=== PATIENT | male | born 1945 ===

== ENCOUNTER 2019-03-11 16:07 | Inpatient (IN) | payer MEDICARE, OTHER ==
[~2019-03-11] VITALS: Ht 175.3 cm; Wt 90.0 kg
[2019-03-11] VITALS (7 sets, daily range): BP systolic 137–155; BP diastolic 60–92
[~2019-03-11 16:07] MED LIST: heparin 10,000 units/1 ML INJ ONE; heparin, porcine-25,000 units/D5-250ml premix IV ONE
[2019-03-11] MEDS ORDERED: ondansetron/PF 4mg/2ml inj IV ONE (16:25)
[2019-03-11] MEDS: morphine 4 MG/ML inj SYRINge IV PRN ×2 (16:28→16:56)
[2019-03-11] MEDS ORDERED: iohexol 350MG/ML 100ml bottle IV ONE (16:30)
[2019-03-11 16:47] LABS: BASOPHILS # (AUTO) 0.1 X10'3 (0-0.2); BASOPHILS % (AUTO) 0.7 % (0-1); EOSINOPHILS # (AUTO) 0.1 X10'3 (0-0.9); HEMATOCRIT 44.1 % (42.0-52.0); HEMOGLOBIN 14.9 g/dl (14.0-17.9); LYMPHOCYTES % (AUTO) 19.9 % (21-51); MEAN CORPUSCULAR HEMOGLOBIN 29.7 PG (27.0-31.0); MEAN CORPUSCULAR HGB CONC 33.7 g/dL (33.0-36.5); MEAN CORPUSCULAR VOLUME 88.2 FL (78-98); MEAN PLATELET VOLUME 9.4 FL (7.4-10.4); MONOCYTES # (AUTO) 0.8 X10'3 (0-0.9); MONOCYTES % (AUTO) 7.5 % (2-12); NEUTROPHILS # (AUTO) 7.2 X10'3 (1.8-7.7); NEUTROPHILS % (AUTO) 70.9 % (42-75); PLATELET COUNT 234 X10'3 (140-440); RED CELL DISTRIBUTION WIDTH 13.9 % (11.5-14.5); WHITE BLOOD COUNT 10.1 X10'3 (4.5-11.0)
[2019-03-11 16:59] LABS: ALANINE AMINOTRANSFERASE 25 U/L (12-78); ALBUMIN 3.8 G/DL (3.4-5.0); ALKALINE PHOSPHATASE 101 IU/L (46-116); ANION GAP 10 (8-16); ASPARTATE AMINO TRANSFERASE 16 U/L (10-37); BILIRUBIN,TOTAL 0.5 MG/DL (0.1-1.0); BLOOD UREA NITROGEN 24 MG/DL (7-18); BUN/CREATININE RATIO 16.4 (5.4-32.0); CALCIUM 9.9 MG/DL (8.5-10.1); CHLORIDE 104 MMOL/L (99-107); CREATININE 1.46 MG/DL (0.60-1.10); GLUCOSE 160 MG/DL (70-104); POTASSIUM 4.4 MMOL/L (3.5-5.1); SODIUM 139 MMOL/L (135-145); TOTAL CARBON DIOXIDE 24.6 MMOL/L (24-32); TOTAL PROTEIN 7.7 G/DL (6.4-8.2); eGFR 47 ML/MIN
[2019-03-11 17:06] LABS: MAGNESIUM 1.9 MG/DL (1.5-2.4)
--- NOTE | 2019-03-11 17:06 | NUR ---
PATIETN BACK IN THE ROOM,MEDICATED WITH MORPHINE.
--- NOTE | 2019-03-11 17:09 | NUR ---
DR. ROJAS MADE AWARE THAT PATIENT WAS MEDICATED MORPHINE 4MG X 2 ALREADY,PAIN STILL 10/10,MD ORDERED REPEAT EKG AND FENTANYL 100MCG.
[2019-03-11] MEDS ORDERED: fentaNYL/PF 50MCG/1 ML 2ML syringe IV STA (17:12)
--- NOTE | 2019-03-11 17:30 | NUR ---
DR. ROJAS AT BEDSIDE,ORDERED TO PROCEED GIVING HEPARIN.
[2019-03-11] MEDS ORDERED: heparin 25,000 UNIT/250ml bag 250 ML IV SCH (17:37)
[2019-03-11] MEDS ORDERED: heparin 10,000 units/1 ML INJ IV PRN (17:40)
[2019-03-11] MEDS ORDERED: heparin 10,000 units/1 ML INJ IV ONE (17:40)
[2019-03-11] MEDS ORDERED: heparin 1,000unit/ml 10ml vial 10 ML ONE (17:45)
[2019-03-11] MEDS ORDERED: midazolam 2 mg/2 ml injection ONE (17:45)
[2019-03-11] MEDS ORDERED: fentaNYL/PF 50MCG/1 ML 2ML syringe ONE (17:45)
[2019-03-11] MEDS ORDERED: LIDOcaine 1% (10mg/ml)w/preservative injection 20ml MDV ONE (17:45)
[2019-03-11] MEDS ORDERED: iohexol 350 MG/1 ML 200ml bottle ONE (17:46)
--- NOTE | 2019-03-11 17:51 | NUR ---
Awaiting for equipment operator/laborer to take patient,patient prepped:shaved bilateral groin,cleaned with chlorhexidine,patient on a clean gown,extension tubing to both piv.patient repositioned for comfort.
--- NOTE | 2019-03-11 17:54 | NUR ---
PHARMACIST HAS TAKEN THE PT'S BOTTLES OF MEDS.
[2019-03-11] MEDS ORDERED: HYDR-4353 PO (17:58)
[2019-03-11] MEDS ORDERED: METO50TA17 PO (17:58)
[2019-03-11] MEDS ORDERED: LISI-640 PO (17:58)
--- NOTE | 2019-03-11 17:58 | NUR ---
ADELE PHONE NUMBER (PT'S SON'S CHELE) [phone]
--- NOTE | 2019-03-11 18:02 | NUR ---
PT GOING TO CATHLAB NOW. PT'S KEYS GIVEN TO ADELE PER PT'S REQUEST
[2019-03-11] MEDS ORDERED: RIVA20TA PO (18:33)
[2019-03-11] MEDS ORDERED: BUPR75TA8 PO (18:33)
--- NOTE | 2019-03-11 18:45 | NUR ---
Received shift report from Assisted Living Administrator. Heparin drip D/C in director of cardiac cath lab, will need to give Plavix when pt gets to unit. Perclose to R groin, no hematoma noted. 1 stent to proximal LAD which is 80% occluded. Per Dr. Jacob, pt did not have a RI.
[2019-03-11] MEDS ORDERED: clopidogrel 300mg tablet ONE (18:58)
--- NOTE | 2019-03-11 19:15 | NUR ---
Pt arrived to unit from manager cardiac cath. 2 RN skin assessment performed, perclose to R groin, no hematoma noted. No other skin issue noted. Pt came with personal belongings (green bag and black bag), and a plastic bag with clothes. Pt is oriented on the unit, call light within reach, all needs met. Pt is aware that he is to remain bedrest till 01:15 am on 03/12. Tele placed on patient.
[2019-03-11] MEDS ORDERED: proCHLORperazine 10 MG/2 ml inj IV PRN (19:40)
[2019-03-11] MEDS ORDERED: ondansetron/PF 4mg/2ml inj IV PRN (19:40)
[2019-03-11] MEDS ORDERED: HYDROcodone/acetaminophen 10/325mg tab PO PRN (19:40)
[2019-03-11] MEDS ORDERED: HYDROcodone/acetaminophen 5mg/325mg tablet PO PRN (19:40)
[2019-03-11] MEDS ORDERED: OXAZEpam 15mg capsule PO PRN (19:40)
[2019-03-11] MEDS: metoprolol tartrate 25mg tablet PO SCH (20:56)
[2019-03-11] MEDS: atorvastatin 20mg tablet PO SCH (20:57)
[2019-03-12 02:00] VITALS: BP 144/71
--- NOTE | 2019-03-12 05:54 | NUR ---
I have reviewed and agree with Josie Alvarez's RN charting.
[2019-03-12 06:00] VITALS: BP 139/71
--- NOTE | 2019-03-12 06:00 | NUR ---
Problems reprioritized. Patient report given, questions answered & plan of care reviewed with MELIZA Posada.
[2019-03-12 06:17] LABS: BASOPHILS # (AUTO) 0.1 X10'3 (0-0.2); BASOPHILS % (AUTO) 0.5 % (0-1); EOSINOPHILS % (AUTO) 0.4 % (0-6); HEMATOCRIT 41.5 % (42.0-52.0); HEMOGLOBIN 13.9 g/dl (14.0-17.9); LYMPHOCYTES # (AUTO) 1.5 X10'3 (1.1-4.8); LYMPHOCYTES % (AUTO) 13.6 % (21-51); MEAN CORPUSCULAR HEMOGLOBIN 29.8 PG (27.0-31.0); MEAN CORPUSCULAR HGB CONC 33.6 g/dL (33.0-36.5); MEAN CORPUSCULAR VOLUME 88.6 FL (78-98); MEAN PLATELET VOLUME 9.4 FL (7.4-10.4); MONOCYTES # (AUTO) 1.1 X10'3 (0-0.9); MONOCYTES % (AUTO) 9.5 % (2-12); NEUTROPHILS # (AUTO) 8.5 X10'3 (1.8-7.7); PLATELET COUNT 199 X10'3 (140-440); RED BLOOD COUNT 4.68 X10'6 (4.70-6.10); WHITE BLOOD COUNT 11.1 X10'3 (4.5-11.0)
--- NOTE | 2019-03-12 06:23 | NUR ---
Problems reprioritized. Patient report given, questions answered & plan of care reviewed with Claudette Oliveros RN.
--- NOTE | 2019-03-12 07:02 | NUR ---
Patient in room PCU 3017. I have received report from MELIZA CHRISTINE AND MELIZA MOORE and had the opportunity to ask questions and assume patient care.
[2019-03-12] MEDS: metoprolol tartrate 25mg tablet PO SCH ×2 (07:30→21:36)
[2019-03-12] MEDS: aspirin 81mg tab.chew PO SCH (08:22)
[2019-03-12] MEDS: clopidogrel 75mg tablet PO SCH (08:22)
[2019-03-12] MEDS ORDERED: haloperidol 5mg tablet PO PRN (08:55)
[2019-03-12] MEDS ORDERED: LORazepam 2 mg/ml vial IV PRN (08:55)
[2019-03-12] MEDS ORDERED: LORazepam 1 MG tablet PO PRN (08:55)
[2019-03-12] MEDS ORDERED: haloperidol lactate 5mg/ml inj IM PRN (08:55)
[2019-03-12 08:58] LABS: ALBUMIN 3.4 G/DL (3.4-5.0); ANION GAP 9 (8-16); BLOOD UREA NITROGEN 21 MG/DL (7-18); BUN/CREATININE RATIO 17.9 (5.4-32.0); CALCIUM 8.9 MG/DL (8.5-10.1); CHLORIDE 105 MMOL/L (99-107); CHOL/HDL RATIO 4.3 (0.00-4.99); CHOLESTEROL 153 MG/DL (0-200); CREATININE 1.17 MG/DL (0.60-1.10); GLUCOSE 97 MG/DL (70-104); HDL CHOLESTEROL 36 MG/DL (35-60); LDL CHOLESTEROL 103 MG/DL (50-100); POTASSIUM 4.4 MMOL/L (3.5-5.1); SODIUM 140 MMOL/L (135-145); TRIGLYCERIDES 107 MG/DL (20-135); eGFR 61 ML/MIN
[2019-03-12] MEDS: pantoprazole 40mg Tablet.DR PO SCH (09:37)
[2019-03-12 11:00] VITALS: BP 161/78
[2019-03-12 15:00] VITALS: BP 163/67
--- NOTE | 2019-03-12 18:30 | NUR ---
Patient in room PCU 3017. I have received report from Claudette Oliveros RN and had the opportunity to ask questions and assume patient care.
--- NOTE | 2019-03-12 18:49 | NUR ---
Problems reprioritized. Patient report given, questions answered & plan of care reviewed with OSCAR RN.
[2019-03-12 19:00] VITALS: BP 154/72
[2019-03-12] MEDS: atorvastatin 20mg tablet PO SCH (21:36)
[2019-03-12 23:00] VITALS: BP 133/69
[2019-03-13 03:00] VITALS: BP 154/76
[2019-03-13 06:00] VITALS: BP 147/75
--- NOTE | 2019-03-13 06:30 | NUR ---
Patient in room PCU 3017. I have received report from OSCAR, MELIZA and had the opportunity to ask questions and assume patient care. PT RESTING COMFORTABLY IN BED, AWAKE, ALERT AND ORIENTED
[2019-03-13 06:34] LABS: BASOPHILS # (AUTO) 0.1 X10'3 (0-0.2); BASOPHILS % (AUTO) 0.5 % (0-1); EOSINOPHILS # (AUTO) 0.1 X10'3 (0-0.9); EOSINOPHILS % (AUTO) 0.6 % (0-6); HEMATOCRIT 43.2 % (42.0-52.0); HEMOGLOBIN 14.6 g/dl (14.0-17.9); LYMPHOCYTES # (AUTO) 1.9 X10'3 (1.1-4.8); LYMPHOCYTES % (AUTO) 17.7 % (21-51); MEAN CORPUSCULAR HEMOGLOBIN 29.9 PG (27.0-31.0); MEAN CORPUSCULAR HGB CONC 33.9 g/dL (33.0-36.5); MEAN CORPUSCULAR VOLUME 88.2 FL (78-98); MEAN PLATELET VOLUME 9.4 FL (7.4-10.4); MONOCYTES # (AUTO) 0.9 X10'3 (0-0.9); MONOCYTES % (AUTO) 8.7 % (2-12); NEUTROPHILS # (AUTO) 7.9 X10'3 (1.8-7.7); NEUTROPHILS % (AUTO) 72.5 % (42-75); PLATELET COUNT 208 X10'3 (140-440); RED CELL DISTRIBUTION WIDTH 14.2 % (11.5-14.5); WHITE BLOOD COUNT 10.9 X10'3 (4.5-11.0)
--- NOTE | 2019-03-13 06:44 | NUR ---
Problems reprioritized. Patient report given, questions answered & plan of care reviewed with Megan Oliveros RN.
[2019-03-13 06:46] LABS: ALANINE AMINOTRANSFERASE 25 U/L (12-78); ALBUMIN 3.6 G/DL (3.4-5.0); ALBUMIN/GLOBULIN RATIO 0.9 (1.1-1.5); ALKALINE PHOSPHATASE 100 IU/L (46-116); AMYLASE 50 U/L (25-115); ANION GAP 8 (8-16); ASPARTATE AMINO TRANSFERASE 29 U/L (10-37); BLOOD UREA NITROGEN 17 MG/DL (7-18); BUN/CREATININE RATIO 14.8 (5.4-32.0); CALCIUM 9.2 MG/DL (8.5-10.1); CHLORIDE 106 MMOL/L (99-107); CREATININE 1.15 MG/DL (0.60-1.10); GLUCOSE 99 MG/DL (70-104); LIPASE 157 U/L (73-393); PHOSPHORUS 3.6 MG/DL (2.3-4.5); POTASSIUM 4.9 MMOL/L (3.5-5.1); SODIUM 141 MMOL/L (135-145); TOTAL CARBON DIOXIDE 27.1 MMOL/L (24-32); TOTAL PROTEIN 7.6 G/DL (6.4-8.2); eGFR 63 ML/MIN
[2019-03-13] MEDS ORDERED: rivaroxaban 20mg tablet PO SCH (08:00)
[2019-03-13] MEDS ORDERED: thiamine 100mg tablet PO SCH (08:00)
[2019-03-13] MEDS ORDERED: multivitamins, therapeutics tablet PO SCH (08:00)
[2019-03-13] MEDS ORDERED: folic acid 1mg tablet PO SCH (08:00)
[2019-03-13] MEDS ORDERED: CLOP75TA35 PO (08:01)
[2019-03-13] MEDS ORDERED: ASPI-1265 PO (08:01)
[2019-03-13] MEDS ORDERED: ATOR40TA PO (08:01)
[2019-03-13] MEDS: pantoprazole 40mg Tablet.DR PO SCH (08:05)
[2019-03-13] MEDS: metoprolol tartrate 25mg tablet PO SCH (08:05)
[2019-03-13] MEDS: aspirin 81mg tab.chew PO SCH (08:06)
[2019-03-13] MEDS: clopidogrel 75mg tablet PO SCH (08:06)
[2019-03-13] MEDS ORDERED: NITR0.4T51 SL (08:14)
[2019-03-13 11:00] VITALS: BP 119/74
--- NOTE | 2019-03-13 13:05 | NUR ---
PT DISCHARGED IN STABLE CONDITION, ALL BELONGINGS SENT HOME WITH PT INCLUDING HOME MEDS. D/C INSTRUCTIONS GIVEN TO PT AND DORON GALVAN. PIV DC'D CANULA INTACT, TELE DC'D. PT TAKEN TO PRIVATE VEHICLE VIA WHEELCHAIR BY PCT. PT GIVEN RX TO TAKE TO [facility] AND GIVEN STENT CARD.
== END 2019-03-13 13:14 | disposition home or self-care (01) | DRG 246 ==
LOC: EDBD 16:08 → ER 16:08 → UNDOADMIN 20:58 → PCU 3S 20:58
PROVIDERS: ADMIT Internal Medicine Interventional Cardiology; ATTEND Internal Medicine Interventional Cardiology
PROC: 027034Z Dilation of Coronary Artery, One Artery with Drug-eluting Intraluminal Device, Percutaneous Approach (ICD-10-PCS; principal; 2019-03-11)
PROC: 4A023N7 Measurement of Cardiac Sampling and Pressure, Left Heart, Percutaneous Approach (ICD-10-PCS; 2019-03-11)
PROC: B2111ZZ Fluoroscopy of Multiple Coronary Arteries using Low Osmolar Contrast (ICD-10-PCS; 2019-03-11)
PROC: B2151ZZ Fluoroscopy of Left Heart using Low Osmolar Contrast (ICD-10-PCS; 2019-03-11)
PROC: B3201ZZ Computerized Tomography (CT Scan) of Thoracic Aorta using Low Osmolar Contrast (ICD-10-PCS; 2019-03-11)
PROC: B32S1ZZ Computerized Tomography (CT Scan) of Right Pulmonary Artery using Low Osmolar Contrast (ICD-10-PCS; 2019-03-11)
PROC: B32T1ZZ Computerized Tomography (CT Scan) of Left Pulmonary Artery using Low Osmolar Contrast (ICD-10-PCS; 2019-03-11)
PROC: B4201ZZ Computerized Tomography (CT Scan) of Abdominal Aorta using Low Osmolar Contrast (ICD-10-PCS; 2019-03-11)
PROC: B4241ZZ Computerized Tomography (CT Scan) of Superior Mesenteric Artery using Low Osmolar Contrast (ICD-10-PCS; 2019-03-11)
PROC: B4281ZZ Computerized Tomography (CT Scan) of Bilateral Renal Arteries using Low Osmolar Contrast (ICD-10-PCS; 2019-03-11)
PROC: B4211ZZ Computerized Tomography (CT Scan) of Celiac Artery using Low Osmolar Contrast (ICD-10-PCS; 2019-03-11)
DX: I25.110 Atherosclerotic heart disease of native coronary artery with unstable angina pectoris (principal); G93.41 Metabolic encephalopathy; N17.9 Acute kidney failure, unspecified; E78.5 Hyperlipidemia, unspecified; F10.10 Alcohol abuse, uncomplicated; I10 Essential (primary) hypertension; I95.9 Hypotension, unspecified; Z79.01 Long term (current) use of anticoagulants; Z79.02 Long term (current) use of antithrombotics/antiplatelets; Z79.899 Other long term (current) drug therapy; Z85.51 Personal history of malignant neoplasm of bladder; Z86.718 Personal history of other venous thrombosis and embolism; Z87.11 Personal history of peptic ulcer disease; Z87.891 Personal history of nicotine dependence; Z91.012 Allergy to eggs; Z91.018 Allergy to other foods; Z71.41 Alcohol abuse counseling and surveillance of alcoholic
CPT/HCPCS: 93306; 93458; 96365; 96375; 96376; 99285; C9600; 36415; 71045; 71275; 74174; 80048; 80053; 80061; 82150; 82948; 83690; 83735; 83880; 84100; 84484; 85025; 85610; 87081; 93005; 99152; 99153; A4620; A6258; C1725; C1760; C1769; C1874; G0378; J1644; J2001; J2250; J2270; J2405; J3010; Q9967